=== PATIENT | male | born 1955 | race Caucasian/White ===

== ENCOUNTER 2021-11-11 16:01 | Inpatient (IN) | payer MEDICARE ==
[~2021-11-11] VITALS: Ht 180.3 cm; Wt 81.6 kg
[2021-11-11 17:18] LABS: HEMOGLOBIN 15.2 gm/dl (14.0-17.5); RED BLOOD COUNT 4.81 M/UL (4.20-5.50)
[2021-11-11 17:45] LABS: BUN/CREATININE RATIO 14 (0-10)
[2021-11-12] MEDS ORDERED: ATORVASTATIN CA40 MG PO (02:39)
[2021-11-12] MEDS ORDERED: DONEPEZIL HCL5 MG PO (02:40)
[2021-11-12] MEDS ORDERED: EASY TOUCH MC (02:40)
[2021-11-12] MEDS ORDERED: FLOMAX 0.4 MG0.4 MG PO (02:41)
[2021-11-12] MEDS ORDERED: FINASTERIDE5 MG PO (02:41)
[2021-11-12] MEDS ORDERED: GLUCOPHAGE 500500 MG GT (02:41)
[2021-11-12] MEDS ORDERED: INSULIN LI100 UNIT/2 SQ (02:43)
[2021-11-12] MEDS ORDERED: LISINOPRIL-HCT1 EAC1 PO (02:44)
[2021-11-12] MEDS ORDERED: LEVOCETIRIZINE D5 MG PO (02:44)
[2021-11-12] MEDS ORDERED: SULFAMETHOXAZO1 EACH PO (02:45)
[2021-11-12] MEDS ORDERED: CARVEDILOL6.25 MG PO (02:46)
[2021-11-12] MEDS ORDERED: METHOCARBAMOL500 MG PO (02:46)
[2021-11-12] MEDS ORDERED: LEVOTHYROXINE150 MCG PO (02:47)
[2021-11-12] MEDS ORDERED: LEVEMIR FL100 UNIT/1 SQ (02:48)
[2021-11-12] MEDS ORDERED: HYDROCODON-ACE1 EAC2 PO (02:48)
[2021-11-12 06:57] LABS: WHITE BLOOD COUNT 10.1 K/UL (4.5-11.0)
[2021-11-12 07:01] LABS: HEMOGLOBIN 12.9 gm/dl (14.0-17.5); RED BLOOD COUNT 4.12 M/UL (4.20-5.50)
[2021-11-12 07:37] LABS: BUN/CREATININE RATIO 12 (0-10)
[2021-11-12 16:08] LABS: ACINETOBACTER BAUMANNII Not Detected (Negative); CANDIDA ALBICANS Not Detected (Negative); CANDIDA KRUSEI Not Detected (Negative); CANDIDA TROPICALIS Not Detected (Negative); ENTEROCOCCUS Not Detected (Negative); ESCHERICHIA COLI Not Detected (Negative); HAEMOPHILUS INFLUENZAE Not Detected (Negative); KLEBSIELLA OXYTOCA Not Detected (Negative); KLEBSIELLA PNEUMONIAE Not Detected (Negative); KPC-CARBAPENEM-RESISTANCE GENE Not Detected (Negative); PROTEUS Not Detected (Negative); PSEUDOMONAS AERUGINOSA Not Detected (Negative); SERRATIA MARCESANS Not Detected (Negative); STAPHYLOCOCCUS AUREUS Not Detected (Negative); STREP AGALACTIAE (GROUP B) Not Detected (Negative); STREP PYOGENES (GROUP A) Not Detected (Negative); STREPTOCOCCUS Not Detected (Negative); mecA (METHICILLIN RESIST GENE Not Detected (Negative); vanA/B (VANCOMYCIN RESIST GENE Not Detected (Negative)
[2021-11-12 20:38] LABS: STAPHYLOCOCCUS DETECTED (Negative)
[2021-11-13 05:54] LABS: RED BLOOD COUNT 3.84 M/UL (4.20-5.50)
[2021-11-13 06:22] LABS: BUN/CREATININE RATIO 14 (0-10)
[2021-11-13] MEDS ORDERED: CARVEDILOL3.125 MG PO (12:45)
[2021-11-13] MEDS ORDERED: LISINOPRIL10 MG PO (12:47)
== END 2021-11-13 22:54 | disposition short-term general hospital (02) | DRG 304 ==
LOC: ER1 16:01 → CDU 18:45 → M/S 18:45 → CDU 18:45 → M/S 11-12 01:22
PROVIDERS: Emergency Medicine; ADMIT Internal Medicine
DX: I16.0 Hypertensive urgency (principal); J96.01 Acute respiratory failure with hypoxia; G93.49 Other encephalopathy; Z20.822 Contact with and (suspected) exposure to COVID-19; R78.81 Bacteremia; J90 Pleural effusion, not elsewhere classified; J98.11 Atelectasis; R41.3 Other amnesia; B95.7 Other staphylococcus as the cause of diseases classified elsewhere; N40.0 Benign prostatic hyperplasia without lower urinary tract symptoms; I10 Essential (primary) hypertension; E03.9 Hypothyroidism, unspecified; M10.9 Gout, unspecified; E11.649 Type 2 diabetes mellitus with hypoglycemia without coma; Z79.4 Long term (current) use of insulin; Z86.73 Personal history of transient ischemic attack (TIA), and cerebral infarction without residual deficits; Z88.8 Allergy status to other drugs, medicaments and biological substances; Z88.6 Allergy status to analgesic agent
CPT/HCPCS: 36415; 36600; 70450; 70551; 71045; 71275; 76705; 80053; 80202; 80307; 81001; 82248; 82550; 82553; 82803; 82962; 83010; 83036; 83605; 83615; 83735; 83874; 84484; 85025; 85027; 85045; 85379; 87040; 87086; 87150; 93005; 99285; G0378; J0360; J2185; J2270; J3370; J3411; J7070; Q9967; U0002